=== PATIENT | female | born 1975 | race Caucasian/White ===

== ENCOUNTER 2016-12-26 00:14 | Emergency (ER) | payer BC, OTHER ==
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
[2016-12-26] MEDS ORDERED: IBUPROFEN 600 MG TABLET PO ONE (02:07)
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
[2016-12-26 02:41] VITALS: BP 136/88
== END 2016-12-26 02:55 | disposition home or self-care (01) ==
LOC: ER 00:14
DX: S80.11XA Contusion of right lower leg, initial encounter (principal); M79.661 Pain in right lower leg; V49.50XA Passenger injured in collision with unspecified motor vehicles in traffic accident, initial encounter; R00.0 Tachycardia, unspecified
CPT/HCPCS: 99284